=== PATIENT | female | born 1970 | race Caucasian/White ===

== ENCOUNTER 2023-11-07 07:23 | Day surgery (SDC) | payer OTHER ==
[~2023-11-07] VITALS: Ht 172.7 cm; Wt 80.0 kg
[~2023-11-07 07:23] MED LIST: LR 1,000 ML IV SCH; Ondansetron 4 MG/2 ML VIAL IV PRN
[2023-11-07 09:30] VITALS: BP 122/62; PULSE 71
[2023-11-07 09:45] VITALS: BP 128/62; PULSE 68
--- NOTE | 2023-11-07 09:45 | NUR ---
0930 PATIENT RETURNS TO [facility] [place]. PT AWAKE AND ALERT. RESPIRATIONS UNLABORED. AMBULATED TO RECLINER CHAIR WITH 2:1 SBA. PT DENIES NAUSEA OR ABDOMINAL PAIN. HOOKED UP TO MONITOR AND VS OBTAINED. CALL LIGHT AT SIDE AND FRIEND MICHAEL PRESENT. 0935 PATIENT REFUSED SNACK AND DRINK. 0940 IN ROOM SPEAKING WITH PATIENT. 1000 D/C INSTRUCTIONS REVIEWED WITH PATIENT. PT VERBALIZED UNDERSTANDING AND A COPY OF INSTRUCTIONS PROVIDED IN D/C FOLDER. 1010 PATIENT DRESSES SELF. 1015 PATIENT DISCHARGED FROM UNIT VIA W/C TO A PERSONAL VEHICLE. PT LEFT HOSPITAL IN STABLE CONDITION.
[2023-11-07 10:00] VITALS: BP 135/73; PULSE 67
[2023-11-07 14:01] VITALS: BP 127/72; PULSE 78; TEMP 97.4
[2023-11-07] MEDS ORDERED: VITAMIN C500 MG PO (14:08)
[2023-11-07] MEDS ORDERED: MASON NATURAL2000 IU PO (14:08)
== END 2023-11-07 10:15 | disposition home or self-care (01) ==
LOC: SDCO 07:23
DX: K60.1 Chronic anal fissure (principal); K92.1 Melena; K64.0 First degree hemorrhoids; R14.0 Abdominal distension (gaseous)
CPT/HCPCS: J2704; J7120